=== PATIENT | female | born 1955 | race Caucasian/White ===

== ENCOUNTER 2016-08-23 22:42 | Emergency (ER) | payer BC ==
--- NOTE | 2016-08-24 03:00 | ED ORDER SUMMARY ---
..... Patient: PA DE LEON OrderSheet [facility] VisitID: [id number] [place] [address] 60y, F Registration Date/Time: 08/23/2016 ORDER SHEET Weight: 65.7 kg (estimated) Allergies: No Known Drug Allergy GENERAL ORDERS: CBC w Diff Urgent (00:00 08/24/2016 DBeyer R.N. per protocol) (Ack 0:06 CHagerty ER Aircraft Sales Representative) (0:21 DBeyer R.N.) CMP Urgent (00:00 08/24/2016 DBeyer R.N. per protocol) (Ack 0:06 CHagerty ER Aircraft Sales Representative) (0:21 DBeyer R.N.) Cardiac Panel Stat (00:00 08/24/2016 DBeyer R.N. per protocol) (Ack 0:06 CHagerty ER Aircraft Sales Representative) (0:21 DBeyer R.N.) Pulse oximeter (00:00 08/24/2016 DBeyer R.N. per protocol) (0:21 DBeyer R.N.) EKG - ER Stat (00:00 08/24/2016 DBeyer R.N. per protocol) (0:21 CHategekimana) Peak Flow (pre & post) Stat (:08/24/2016 Darya BARAKAT) (3:04 CHagerty ER Aircraft Sales Representative) Chest 1V Urgent (01:27 08/24/2016 Darya BARAKAT) (Ack 1:45 CHagerty ER Aircraft Sales Representative) (2:18 RFay) MEDICATION ORDERS: Albuterol Neb Tx 1 unit dose (NOW) (00:15 08/24/2016 DBeyer R.N. per protocol) (0:40 CHagerty ER Aircraft Sales Representative) Albuterol Neb Tx 2 unit doses (HHN) (01:25 08/24/2016 Darya BARAKAT) (3:04 CHagerty ER Aircraft Sales Representative) IV FLUIDS: IV Saline Lock (00:00 08/24/2016 DBeyer R.N. per protocol) (0:00 DBeyer R.N.) Solu-MEDROL IV 125 mg (NOW) (:08/24/2016 Darya BARAKAT) (1:40 [facility] MARIELL[facility] Aircraft Sales Representative) ORDER SHEET NOTES: [Electronically signed by Esvin Manuel R.N. (03:24 08/24/2016)] [Electronically signed by Sandeep Mukherjee MD (22:10 08/26/2016)] [Electronically locked/signed by Esvin Manuel R.N. (03:08/24/2016)]
--- NOTE | 2016-08-24 03:00 | ED CLINICAL REPORT ---
Clinical Report - Physicians/Mid Levels [facility] [address] [place] [address] 08/23/2016 22:43 Patient: PA DE LEON Time Seen: 01:20. Arrived- By private vehicle. Historian- patient and family. HISTORY OF PRESENT ILLNESS Chief Complaint: COUGH AND PROBLEMS BREATHING. ( The pt's partner and RN noted that the patient was initially sleepy and hard to awaken). At its maximum, severity described as moderate. When seen in the E.D., severity described as moderate. Modifying factors- worsened by movement. Relieved by rest. (Some better with meds). This started several days ago and is still present. Similar symptoms previously: Several times. Recent medical care: The patient was seen recently in a clinic. ( Clinic 2-days ago Low dose albuterol, azithromycin and steroid). REVIEW OF SYSTEMS No fever, sore throat, abdominal pain, nausea or vomiting. No diarrhea, black stools, bloody stools or skin rash. She has had a moderate cough productive of scant amounts of sputum. She has had moderate difficulty breathing. Sleepy. PAST HISTORY [place] MARA cancer lung SP lobectomy LE neurological abnormality. Medications: Ventolin HFA Inhalation. MethylPREDNISolone Oral. Codeine-Guaifenesin. Benzonatate Oral. Azithromycin Oral. Zoloft Oral. Allergies: No Known Drug Allergy. SOCIAL HISTORY Former smoker. ADDITIONAL NOTES The nursing notes have been reviewed. PHYSICAL EXAM Vital Signs: 08/24/2016 03:18 BP: 137/84. HR: 87. RR: 14. O2 saturation: 95%. 08/24/2016 01:51 BP: 158/109. O2 saturation: 96%. 08/24/2016 00:43 BP: 140/83. O2 saturation: 95%. 08/24/2016 00:18 BP: 149/91. RR: 16. O2 saturation: 96%. 08/23/2016 23:39 BP: 159/106. HR: 93. RR: 16. O2 saturation: 92%. Temp: 98.3 F. Appearance: Alert. No acute distress. (Awake and conversing normally). Eyes: Eyes normal inspection. ENT: Pharynx normal. Neck: Normal inspection. CVS: Heart sounds normal. Respiratory: No respiratory distress. Mildly decreased air movement diffusely over both lungs. Moderate bilateral wheezes diffusely. No accessory muscle use, rales or rhonchi. Abdomen: Nontender. Back: Normal inspection. No CVA tenderness. Skin: Normal skin color. Extremities: Extremities exhibit normal ROM. No lower extremity edema. Neuro: No alteration in mental status. No motor deficit. No sensory deficit. LABS, X-RAYS, AND EKG EKG: Normal EKG. Chest X-ray: (PROCEDURE: XR CHEST 1 VIEW INDICATION: COUGH, initial encounter TECHNIQUE: Portable AP view 02:12 a.m. COMPARISON: None. FINDINGS: Lungs are clear. Heart and mediastinum are normal. Surgical clips overlie the mediastinum. Thorax is normal. IMPRESSION: 1. Negative chest. Dictated by: LALIT MURCIA MD D: LANPI;08/24/1615 <Electronically signed by LALIT MURCIA MD in OV> 08/24/16716). The X-rays were independently viewed by me and interpreted by the radiologist. Laboratory Tests: CBC w Diff: (DEZ: 08/24/2016 00:01) ( MsgRcvd 08/24/2016 00:09) Final results Test Result Flag Units (Reference) WHITE BLOOD COUNT 8.7 K/uL (4.5-11.5) RED BLOOD COUNT 4.84 M/uL (4.00-5.20) HEMOGLOBIN 14.4 gm/dL (12.0-16.0) HEMATOCRIT 43.9 % (36.0-46.0) MEAN CELL VOLUME 91 fL (80-100) MEAN CORPUSCULAR HGB 30 pg (26-34) MEAN CORPUSCULAR HGB CONC 33 g/dL (31-37) RED CELL DISTRIBUTION WIDTH 14.7 % (11.6-14.8) PLATELET COUNT 200 K/uL (150-400) NEUTROPHIL % 81.2 H % (50-75) LYMPH % 15.2 L % (25-40) MONO % 2.8 L % (3-14) EOSINOPHIL % 0 % (0-4) BASOPHIL % 0.8 % (0-2) CHEM 13 PANEL: (DEZ: 08/24/2016 00:01) ( MsgRcvd 08/24/2016 00:24) Final results Test Result Flag Units (Reference) GLUCOSE 152 H mg/dL (70-110) BUN 21 H mg/dL (7-18) CREATININE 1.0 mg/dL (0.6-1.3) Estimated GFR >60 mL/min Estimated GFR- >60 mL/min Note: Persistent reduction over 3 months in eGFR<60 mL/min/1.73 m2 defines CKD. Patients with eGFR values>=60 mL/min/1.73 m2 may also have CKD if evidence ofpersistent proteinuria. Additional information may be foundat www.kidney.org. SODIUM 138 mmol/L (136-145) POTASSIUM 4.2 mmol/L (3.5-5.1) CHLORIDE 105 mmol/L (98-107) CARBON DIOXIDE 26 mmol/L (21-32) CALCIUM 8.9 mg/dL (8.5-10.1) TOTAL PROTEIN 8.1 g/dL (6.4-8.2) ALBUMIN 4.0 g/dL (3.3-5.0) BILIRUBIN, TOTAL 0.4 mg/dL (0.0-1.0) ALKALINE PHOSPHATASE 120 H U/L (46-116) AST (SGOT) 22 U/L (15-37) ALT (SGPT) 34 U/L (12-78) MAGNESIUM 2.3 mg/dL (1.8-2.4) CPK 82 U/L (24-260) TROPONIN I <0.05 L ng/mL (0.00-1.5) TROPONIN REFERENCE RANGE:<0.1 NEGATIVE0.1-1.5 INDETERMINANT>1.5 POSITIVE . PROGRESS AND PROCEDURES Course of Care: 01:26 08/24/16. Wheezy 03:02 08/24/16. Feels better following HHN and moderated dose steroids, 90-91% O2 sat at times , PEFR 220 Pt has significant COPD exacerbation without pneumonia or respiratory failure. The reported sleepyness has resolved without specific treatment. Will proceed with more agressive beta agonist and steroid treatment. Disposition: Discharged. CLINICAL IMPRESSION Acute exacerbation of COPD. INSTRUCTIONS (USE ALBUTEROL EVERY 3-4 HOURS, 1-4 PUFFS A MINUTE APART USING A SPACER INSTEAD OF THE TAPERING DOES PREDNISONE I WILL USE 40 MG PER DAY FOR 5 DAYS THEN USE THE LAST OF THE TAPER. IMMEDIATE RECHECK FOR WORSE PROBLEMS BREATHING). Your Current Medications: STOP TAKING THE FOLLOWING MEDICATIONS: MethylPREDNISolone Oral. Ventolin HFA Inhalation. CONTINUE TAKING THE FOLLOWING MEDICATIONS: Azithromycin Oral. Codeine-Guaifenesin*. Benzonatate Oral. Prescription Medications: Albuterol HFA oral inhaler: inhale 4 puffs via spacer. Prednisone 20 mg: take 2 orally every day for 5 days. Dispense ten (10). No refills. Follow-up: Follow up with your doctor Saturday as scheduled. Understanding of the discharge instructions verbalized by patient and family. (Electronically signed by Sandeep Mukherjee MD 08/26/2016 22:10)
--- NOTE | 2016-08-24 03:00 | ED NURSING NOTES ---
Clinical Report - Nurses [facility] [address] [place] [address] 08/23/2016 22:43 Patient: PA DE LEON TRIAGE Triage time 23:39 Aug 23 2016. Acuity: LEVEL 2. Chief Complaint: (sob). --23:44 Daquan Pearson R.N. 23:39 08/23/16. BP: 159/106. HR: 93. RR: 16. O2 saturation: 92%. Temp: 98.3 F. Pain level now 0/10. --23:44 Daquan Pearson R.N. Weight: 65.7 kg estimated. Height/Length: 65 inches Estimated. BMI: 24.1. --23:43 Daquan Pearson R.N. Medications Zoloft Oral. --23:41 Daquan Pearson R.N. Azithromycin Oral. --23:41 Daquan Pearson R.N. Benzonatate Oral. --23:41 Daquan Pearson R.N. Codeine-Guaifenesin. --23:41 Daquan Pearson R.N. MethylPREDNISolone Oral. --23:42 Daquan Pearson R.N. Ventolin HFA Inhalation. --23:42 Daquan Pearson R.N. Allergies No Known Drug Allergy. --23:41 Daquan Pearson R.N. History Arrived by private vehicle. ( Pt and partner arrive pt is hard to wake, but can respond to questions and follow commands. hx lung cancer). Treatment CROSS COUNTRY TRUCK DRIVER: None. SOCIAL HX: Former smoker. Alcohol use; consumes liquor occasionally. History of drug use: marijuana. --23:44 Daquan Pearson R.N. Interventions ID band on patient. --23:44 Daquan Pearson R.N. PHYSICAL ASSESSMENT ( Pt placed on 2L NC for 02 sat 88% increased to 98%). GENERAL / NEURO / PSYCH: ( decreased alertness pt wakes to verbal stimuli quickly falls asleep. GCS 14). HEENT: Pupils equal, round and reactive to light. No facial asymmetry noted. RESPIRATORY: Decreased breath sounds in the left lung base anteriorly, mid-lung anteriorly and upper lung anteriorly. Wheezes in the right lung base anteriorly, mid-lung anteriorly and upper lung anteriorly. SKIN: Skin is warm and dry. --00:13 Daquan Pearson R.N. NURSING PROGRESS NOTES 00:00 08/24/2016 Site #1 started via IV forearm with an 18g angiocath, with good blood return; one attempt. Blood drawn: rainbow set. Labeled in the presence of the patient. Saline lock flushed. --00:00 Daquan Pearson R.N. 00:18 08/24/16. BP: 149/91. RR: 16. O2 saturation: 96%. --00:20 Daquan Pearson R.N. Oxygen administered. Monitoring of patient in place. Patient gowned. Reassurance given. Two patient identifiers checked. Call light placed in reach. Side rails up x 1. Bed placed in lowest position. --00:20 Daquan Pearson R.N. EKG time: (0018 AM). EKG was ordered, performed by a tech and shown to the ED physician. --00:21 Gwendolyn Mohamud 00:25 08/24/2016 Albuterol Neb TX Nebulizer 1 unit dose given. Given by the respiratory therapist. Allergies verified and confirmed 5 rights. --00:40 Osorio Vann, ER Chief Of Party 00:43 08/24/16. BP: 140/83. O2 saturation: 95%. --00:43 Daquan Pearson R.N. 01:39 08/24/2016 SOLU-MEDROL (MethylPREDNISolone Sodium Succ) IVP 125 mg given over 2 minute(s) via site #1. Allergies verified and confirmed 5 rights. IV patency established. IV site checked: no pain, redness, or swelling. IV flushed thoroughly pre- and post-medication administration. IVP given by RN. --01:40 Osorio Vann, ER Chief Of Party 01:51 08/24/16. BP: 158/109. O2 saturation: 96%. --01:51 Daquan Pearson R.N. 02:39 08/24/2016 Albuterol Neb TX Nebulizer 2 unit dose given. Given by the respiratory therapist. Allergies verified and confirmed 5 rights. --03:05 Osorio Vann, MARIELLA Chief Of Party. DISPOSITION / DISCHARGE 03:23 08/24/2016 Site #1 removed upon discharge. Pressure dressing applied. --03:23 Esvin Manuel R.N. Departure time: 03:23. Condition at departure: improved. No learning barriers present. Discharge instructions provided and reviewed with the patient. Reviewed warnings. Reviewed medication(s). Treatments reviewed. Patient verbalized understanding. Written instructions provided in Chadian. The patient was discharged by the physician. She was discharged home and accompanied by spouse. She left the Emergency Department ambulatory and via private vehicle. Spouse driving. --03:23 Esvin Manuel R.N. 03:18 08/24/16. BP: 137/84. HR: 87. RR: 14. O2 saturation: 95%. Pain level now 0/10. --03:23 Esvin Manuel R.N. Locked/Released at 08/24/2016 3:24 by Esvin Manuel R.N.
--- NOTE | 2016-08-24 03:00 | ED ORDER SUMMARY ---
..... Patient: PA DE LEON OrderSheet [facility] VisitID: [id number] [place] [address] 60y, F Registration Date/Time: 08/23/2016 ORDER SHEET Weight: 65.7 kg (estimated) Allergies: No Known Drug Allergy GENERAL ORDERS: CBC w Diff Urgent (00:00 08/24/2016 DBeyer R.N. per protocol) (Ack 0:06 CHagerty ER Trim Line Worker) (0:21 DBeyer R.N.) CMP Urgent (00:00 08/24/2016 DBeyer R.N. per protocol) (Ack 0:06 CHagerty ER Trim Line Worker) (0:21 DBeyer R.N.) Cardiac Panel Stat (00:00 08/24/2016 DBeyer R.N. per protocol) (Ack 0:06 CHagerty ER Trim Line Worker) (0:21 DBeyer R.N.) Pulse oximeter (00:00 08/24/2016 DBeyer R.N. per protocol) (0:21 DBeyer R.N.) EKG - ER Stat (00:00 08/24/2016 DBeyer R.N. per protocol) (0:21 CHategekimana) Peak Flow (pre & post) Stat (:08/24/2016 Darya BARAKAT) (3:04 CHagerty ER Trim Line Worker) Chest 1V Urgent (01:27 08/24/2016 Darya BARAKAT) (Ack 1:45 CHagerty ER Trim Line Worker) (2:18 RFay) MEDICATION ORDERS: Albuterol Neb Tx 1 unit dose (NOW) (00:15 08/24/2016 DBeyer R.N. per protocol) (0:40 CHagerty ER Trim Line Worker) Albuterol Neb Tx 2 unit doses (HHN) (01:25 08/24/2016 Darya BARAKAT) (3:04 CHagerty ER Trim Line Worker) IV FLUIDS: IV Saline Lock (00:00 08/24/2016 DBeyer R.N. per protocol) (0:00 DBeyer R.N.) Solu-MEDROL IV 125 mg (NOW) (:08/24/2016 Darya BARAKAT) (1:40 [facility] MARIELLA Trim Line Worker) ORDER SHEET NOTES: [Electronically signed by Esvin Manuel R.N. (03:24 08/24/2016)] [Electronically signed by Sandeep Mukherjee MD (22:10 08/26/2016)] [Electronically locked/signed by Esvin Manuel R.N. (03:08/24/2016)]
--- NOTE | 2016-08-24 03:00 | ED NURSING NOTES ---
Clinical Report - Nurses [facility] [address] [place] [address] 08/23/2016 22:43 Patient: PA DE LEON TRIAGE Triage time 23:39 Aug 23 2016. Acuity: LEVEL 2. Chief Complaint: (sob). --23:44 Daquan Pearson R.N. 23:39 08/23/16. BP: 159/106. HR: 93. RR: 16. O2 saturation: 92%. Temp: 98.3 F. Pain level now 0/10. --23:44 Daquan Perason R.N. Weight: 65.7 kg estimated. Height/Length: 65 inches Estimated. BMI: 24.1. --23:43 Daquan Pearson R.N. Medications Zoloft Oral. --23:41 Daquan Pearson R.N. Azithromycin Oral. --23:41 Daquan Pearson R.N. Benzonatate Oral. --23:41 Daquan Pearson R.N. Codeine-Guaifenesin. --23:41 Daquan Pearson R.N. MethylPREDNISolone Oral. --23:42 Daquan Pearson R.N. Ventolin HFA Inhalation. --23:42 Daquan Pearson R.N. Allergies No Known Drug Allergy. --23:41 Daquan Pearson R.N. History Arrived by private vehicle. ( Pt and partner arrive pt is hard to wake, but can respond to questions and follow commands. hx lung cancer). Treatment PROJECT ADMINISTRATIVE ASSISTANT: None. SOCIAL HX: Former smoker. Alcohol use; consumes liquor occasionally. History of drug use: marijuana. --23:44 Daquan Pearson R.N. Interventions ID band on patient. --23:44 Daquan Pearson R.N. PHYSICAL ASSESSMENT ( Pt placed on 2L NC for 02 sat 88% increased to 98%). GENERAL / NEURO / PSYCH: ( decreased alertness pt wakes to verbal stimuli quickly falls asleep. GCS 14). HEENT: Pupils equal, round and reactive to light. No facial asymmetry noted. RESPIRATORY: Decreased breath sounds in the left lung base anteriorly, mid-lung anteriorly and upper lung anteriorly. Wheezes in the right lung base anteriorly, mid-lung anteriorly and upper lung anteriorly. SKIN: Skin is warm and dry. --00:13 Daquan Pearson R.N. NURSING PROGRESS NOTES 00:00 08/24/2016 Site #1 started via IV forearm with an 18g angiocath, with good blood return; one attempt. Blood drawn: rainbow set. Labeled in the presence of the patient. Saline lock flushed. --00:00 Daquan Pearson R.N. 00:18 08/24/16. BP: 149/91. RR: 16. O2 saturation: 96%. --00:20 Daquan Pearson R.N. Oxygen administered. Monitoring of patient in place. Patient gowned. Reassurance given. Two patient identifiers checked. Call light placed in reach. Side rails up x 1. Bed placed in lowest position. --00:20 Daquan Pearson R.N. EKG time: (0018 AM). EKG was ordered, performed by a tech and shown to the ED physician. --00:21 Gwendolyn Mohamud 00:25 08/24/2016 Albuterol Neb TX Nebulizer 1 unit dose given. Given by the respiratory therapist. Allergies verified and confirmed 5 rights. --00:40 Osorio Vann, ER Extension Edger 00:43 08/24/16. BP: 140/83. O2 saturation: 95%. --00:43 Daquan Pearson R.N. 01:39 08/24/2016 SOLU-MEDROL (MethylPREDNISolone Sodium Succ) IVP 125 mg given over 2 minute(s) via site #1. Allergies verified and confirmed 5 rights. IV patency established. IV site checked: no pain, redness, or swelling. IV flushed thoroughly pre- and post-medication administration. IVP given by RN. --01:40 Osorio Vann, ER Extension Edger 01:51 08/24/16. BP: 158/109. O2 saturation: 96%. --01:51 Daquan Pearson R.N. 02:39 08/24/2016 Albuterol Neb TX Nebulizer 2 unit dose given. Given by the respiratory therapist. Allergies verified and confirmed 5 rights. --03:05 Osorio Vann, MARIELLA Extension Edger. DISPOSITION / DISCHARGE 03:23 08/24/2016 Site #1 removed upon discharge. Pressure dressing applied. --03:23 Esvin Manuel R.N. Departure time: 03:23. Condition at departure: improved. No learning barriers present. Discharge instructions provided and reviewed with the patient. Reviewed warnings. Reviewed medication(s). Treatments reviewed. Patient verbalized understanding. Written instructions provided in Kosovan. The patient was discharged by the physician. She was discharged home and accompanied by spouse. She left the Emergency Department ambulatory and via private vehicle. Spouse driving. --03:23 Esvin Manuel R.N. 03:18 08/24/16. BP: 137/84. HR: 87. RR: 14. O2 saturation: 95%. Pain level now 0/10. --03:23 Esvin Manuel R.N. Locked/Released at 08/24/2016 3:24 by Esvin Manuel R.N.
--- NOTE | 2016-08-24 07:17 | DIAGNOSTIC IMAGING REPORT ---
PROCEDURE: XR CHEST 1 VIEW INDICATION: COUGH, initial encounter TECHNIQUE: Portable AP view 02:12 a.m. COMPARISON: None. FINDINGS: Lungs are clear. Heart and mediastinum are normal. Surgical clips overlie the mediastinum. Thorax is normal. IMPRESSION: 1. Negative chest.
--- NOTE | 2016-08-26 22:11 | ED DISCHARGE INSTRUCTIONS ---
Patient: PA DE LEON General Instructions [facility] VisitID: [id number] [place] [address] 60y, F Registration Date/Time: 08/23/2016 Acute exacerbation of COPD. INSTRUCTIONS (USE ALBUTEROL EVERY 3-4 HOURS, 1-4 PUFFS A MINUTE APART USING A SPACER INSTEAD OF THE TAPERING DOES PREDNISONE I WILL USE 40 MG PER DAY FOR 5 DAYS THEN USE THE LAST OF THE TAPER. IMMEDIATE RECHECK FOR WORSE PROBLEMS BREATHING). Your Current Medications: STOP TAKING THE FOLLOWING MEDICATIONS: MethylPREDNISolone Oral. Ventolin HFA Inhalation. CONTINUE TAKING THE FOLLOWING MEDICATIONS: Azithromycin Oral. Codeine-Guaifenesin*. Benzonatate Oral. Prescription Medications: Albuterol HFA oral inhaler: inhale 4 puffs via spacer. Prednisone 20 mg: take 2 orally every day for 5 days. Dispense ten (10). No refills. Follow-up: Follow up with your doctor Saturday as scheduled. Understanding of the discharge instructions verbalized by patient and family. ADDITIONAL INFORMATION COPD Flare Both emphysema and chronic bronchitis are forms of chronic obstructive pulmonary disease (COPD). It is most often caused by many years of smoking tobacco. Many things can make your lung disease suddenly get worse. These causes include the common cold, pneumonia, acute bronchitis, missing doses of your regular breathing medicines, or being around smoke, dust, or other air pollutants. A COPD flare may last 7 to 14 days. Your doctor may prescribe medicineto relax your airways and prevent wheezing. Your doctor may also prescribe antibiotics if he or she thinks you havea bacterial infection. Prednisone can helpease inflammation in a severe attack. Home care Here are things you can do at home: Drink lots of water or other fluids (at least 10 glasses a day) during an attack. This will loosen lung secretions and make it easier to breathe. If you have heart or kidney disease, check with your doctor before you drink extra amounts of fluids. Take prescribed medicine exactly at the times advised. If you have a hand-held inhaler or aerosol breathing medicine, don't use it more than once every 4 hours, unless your doctor tells you to. If you were givenan antibiotic or prednisone, take all of the medicine even if you are feeling better after a few days. Don't smoke. Avoid being aroundthe smoke of others. If you were given an inhaler, use it exactly as directed. If you need to use it more often than prescribed, your condition may be getting worse. Call your doctor. Follow-up care Follow up with your health care provider.If you are 65 or older or have chronic asthma or COPD, you should get a single dose of the pneumococcal vaccine and aflu shot each year. You may need a second dose of the pneumococcal vaccine if you had the first dose at a younger age. Your health care provider will let you know if you need a second dose. For all other people, the usual dose for the pneumococcal vaccine is 1 or 2 shots. Yourprovider can discuss this with you. When to seek medical care Get prompt medical attention ifany of these occur: Increased wheezing or shortness of breath Need to use your inhalers more often than usual without relief Fever of 100.4F(38C) or higher, or as directed by your health care provider Coughing up lots of dark-colored or bloody sputum (mucus) Chest pain with each breath You do not start to improve within 24 hours You have been given the following additional information: COPD Flare (Electronically signed by Sandeep Mukherjee MD 08/26/2016 22:10)
--- NOTE | 2016-08-26 22:11 | ED MED RECONCILIATION SUMMARY ---
Patient: PA DE LEON Medication Reconciliation Report [facility]erg[facility] VisitID: [id number] [place] [address] 60y, F Registration Date/Time: 08/23/2016 Weight: 65.7 kg Height/Length: 65 in. BMI: 24.1 ALLERGIES: No Known Drug Allergy The patient's Home Medications are listed below: STOP TAKING THE FOLLOWING MEDICATIONS: MethylPREDNISolone Oral Ventolin HFA Inhalation CONTINUE TAKING THE FOLLOWING MEDICATIONS: Azithromycin Oral Benzonatate Oral Codeine-Guaifenesin THE FOLLOWING MEDICATIONS NEED TO BE RECONCILED: Zoloft Oral The source(s) of the original Home Medication information: Not obtained. The following Medications were given to the patient in the Emergency Department: Albuterol [Neb Tx] Neb TX 1 unit dose, administered: 08/24/2016 12:25:00 AM SOLU-MEDROL [IVP] IVP 125 mg, administered: 08/24/2016 1:39:00 AM Albuterol [Neb Tx] Neb TX 2 unit dose, administered: 08/24/2016 2:39:00 AM The following Medications were prescribed to the patient: Albuterol HFA oral inhaler: inhale 4 puffs via spacer. -- Sandeep Mukherjee MD Prednisone 20 mg: take 2 orally every day for 5 days. Dispense ten (10). No refills. -- Sandeep Mukherjee MD
--- NOTE | 2016-08-26 22:11 | ED MAR SUMMARY ---
..... Medication Administration Record [facility] [place] [address] [place] [address] Patient: PA DE LEON Visit ID: [id number] 60y, F Weight: 65.7 kg Height/Length: 65 in BMI: 24.1 ALLERGIES: No Known Drug Allergy Given 00:25 08/24/2016 Osorio Vann, ER Corporate Legal Manager Medication Administered: ALBUTEROL [NEB TX], Dose: 1 unit dose Nebulizer Neb TX. Medication Ordered: Albuterol Neb Tx 1 unit dose (NOW). Given 01:39 08/24/2016 Osorio Vann, ER Corporate Legal Manager Medication Administered: SOLU-MEDROL [IVP] (METHYLPREDNISOLONE SODIUM SUCC), Dose: 125 mg IVP over 2 minute(s), Site: #1 forearm. Medication Ordered: Solu-MEDROL IV 125 mg (NOW). Given 02:39 08/24/2016 Osorio Vann, ER Corporate Legal Manager Medication Administered: ALBUTEROL [NEB TX], Dose: 2 unit dose Nebulizer Neb TX. Medication Ordered: Albuterol Neb Tx 2 unit doses (HHN).
--- NOTE | 2016-08-26 22:11 | ED MED RECONCILIATION SUMMARY ---
Patient: PA DE LEON Medication Reconciliation Report [facility] VisitID: [id number] [place] [address] 60y, F Registration Date/Time: 08/23/2016 Weight: 65.7 kg Height/Length: 65 in. BMI: 24.1 ALLERGIES: No Known Drug Allergy The patient's Home Medications are listed below: STOP TAKING THE FOLLOWING MEDICATIONS: MethylPREDNISolone Oral Ventolin HFA Inhalation CONTINUE TAKING THE FOLLOWING MEDICATIONS: Azithromycin Oral Benzonatate Oral Codeine-Guaifenesin THE FOLLOWING MEDICATIONS NEED TO BE RECONCILED: Zoloft Oral The source(s) of the original Home Medication information: Not obtained. The following Medications were given to the patient in the Emergency Department: Albuterol [Neb Tx] Neb TX 1 unit dose, administered: 08/24/2016 12:25:00 AM SOLU-MEDROL [IVP] IVP 125 mg, administered: 08/24/2016 1:39:00 AM Albuterol [Neb Tx] Neb TX 2 unit dose, administered: 08/24/2016 2:39:00 AM The following Medications were prescribed to the patient: Albuterol HFA oral inhaler: inhale 4 puffs via spacer. -- Sandeep Mukherjee MD Prednisone 20 mg: take 2 orally every day for 5 days. Dispense ten (10). No refills. -- Sandeep Mukherjee MD
--- NOTE | 2016-08-26 22:11 | ED MAR SUMMARY ---
..... Medication Administration Record [place] [address] [place] [place] [address] Patient: PA DE LEON Visit ID: [id number] 60y, F Weight: 65.7 kg Height/Length: 65 in BMI: 24.1 ALLERGIES: No Known Drug Allergy Given 00:25 08/24/2016 Osorio Vann, ER [employer] Table Operator Medication Administered: ALBUTEROL [NEB TX], Dose: 1 unit dose Nebulizer Neb TX. Medication Ordered: Albuterol Neb Tx 1 unit dose (NOW). Given 01:39 08/24/2016 Osorio Vann, ER [employer] Table Operator Medication Administered: SOLU-MEDROL [IVP] (METHYLPREDNISOLONE SODIUM SUCC), Dose: 125 mg IVP over 2 minute(s), Site: #1 forearm. Medication Ordered: Solu-MEDROL IV 125 mg (NOW). Given 02:39 08/24/2016 Osorio Vann, ER Spin Table Operator Medication Administered: ALBUTEROL [NEB TX], Dose: 2 unit dose Nebulizer Neb TX. Medication Ordered: Albuterol Neb Tx 2 unit doses (HHN).
== END 2016-08-24 03:15 | disposition home or self-care (01) ==
LOC: ED SRH 22:42
DX: J44.1 Chronic obstructive pulmonary disease with (acute) exacerbation (principal); Z87.891 Personal history of nicotine dependence
CPT/HCPCS: 90100; 90616; 92610; 92720; 95059